=== PATIENT | female | born 1940 | race Caucasian/White ===

== ENCOUNTER → 2019-12-06 | Outpatient (CLI) | payer MEDICARE ==
[~2019-12-06] MED LIST: ALEN70TA6 PO; ASPI325T17 PO; DIAZ5TAB4 PO; FLUT1DIS3 INH; GABA300C10 PO; LISI1TAB23 PO; OXYC5CAP2 PO; TRAM50TA2 PO
== END | disposition home or self-care (01) ==
LOC: CFH 09:17
PROVIDERS: ATTEND Nurse Practitioner
DX: M81.0 Age-related osteoporosis without current pathological fracture (principal)
CPT/HCPCS: 77080